=== PATIENT | female | born 1985 | race Caucasian/White ===

== ENCOUNTER 2020-07-03 09:54 | Emergency (ER) | payer BC ==
[~2020-07-03] VITALS: Ht 165.1 cm; Wt 113.5 kg
[~2020-07-03 09:54] MED LIST: HYDR-4383 PO
[2020-07-03 09:57] VITALS: BP 141/78
[2020-07-03] MEDS ORDERED: SULF1TAB49 PO (10:18)
[2020-07-03] MEDS ORDERED: CEPH-572 PO (10:18)
[2020-07-03] MEDS ORDERED: TETanus/Pertussis (Acell)/Diphther VAC/PF (Tdap-Adult) 0.5ml syringe IMVAC ONE (10:35)
== END 2020-07-03 10:40 | disposition home or self-care (01) ==
LOC: ER 09:56
DX: N61.0 Mastitis without abscess (principal); Z72.89 Other problems related to lifestyle; Z79.2 Long term (current) use of antibiotics
CPT/HCPCS: 90471; 90715; 99283

== ENCOUNTER 2020-07-18 10:36 | Emergency (ER) | payer BC ==
[~2020-07-18] VITALS: Ht 165.1 cm; Wt 115.0 kg
[2020-07-18 11:03] VITALS: BP 150/92
[2020-07-18] MEDS ORDERED: HYDROcodone/acetaminophen 5mg/325mg tablet PO ONE (11:50)
[2020-07-18 12:39] LABS: BASOPHILS # (AUTO) 0.1 X10'3 (0-0.2); BASOPHILS % (AUTO) 0.8 % (0-1); EOSINOPHILS % (AUTO) 0.4 % (0-6); HEMATOCRIT 35.2 % (35.0-45.0); HEMOGLOBIN 11.7 g/dl (12.0-16.0); LYMPHOCYTES # (AUTO) 1.5 X10'3 (1.1-4.8); LYMPHOCYTES % (AUTO) 19.5 % (21-51); MEAN CORPUSCULAR HEMOGLOBIN 28.6 PG (27.0-31.0); MEAN CORPUSCULAR HGB CONC 33.1 g/dL (33.0-36.5); MEAN CORPUSCULAR VOLUME 86.4 FL (78-98); MEAN PLATELET VOLUME 7.8 FL (7.4-10.4); MONOCYTES # (AUTO) 0.6 X10'3 (0-0.9); MONOCYTES % (AUTO) 7.1 % (2-12); NEUTROPHILS # (AUTO) 5.6 X10'3 (1.8-7.7); NEUTROPHILS % (AUTO) 72.2 % (42-75); PLATELET COUNT 304 X10'3 (140-440); RED BLOOD COUNT 4.08 X10'6 (4.20-5.60); RED CELL DISTRIBUTION WIDTH 14.6 % (11.5-14.5); WHITE BLOOD COUNT 7.7 X10'3 (4.5-11.0)
[2020-07-18 12:52] LABS: ALANINE AMINOTRANSFERASE 20 U/L (12-78); ALBUMIN 3.6 G/DL (3.4-5.0); ALBUMIN/GLOBULIN RATIO 0.9 (1.1-1.5); ALKALINE PHOSPHATASE 91 IU/L (46-116); ANION GAP 5 (8-16); ASPARTATE AMINO TRANSFERASE 12 U/L (10-37); BILIRUBIN,TOTAL 0.4 MG/DL (0.1-1.0); BLOOD UREA NITROGEN 19 MG/DL (7-18); BUN/CREATININE RATIO 21.3 (6.6-38.0); C-REACTIVE PROTEIN 0.09 MG/DL (0.0-0.5); CALCIUM 8.6 MG/DL (8.5-10.1); CHLORIDE 107 MMOL/L (99-107); CREATININE 0.89 MG/DL (0.40-0.90); GLUCOSE 78 MG/DL (70-104); POTASSIUM 4.3 MMOL/L (3.5-5.1); SODIUM 140 MMOL/L (135-145); TOTAL CARBON DIOXIDE 28.2 MMOL/L (24-32); TOTAL PROTEIN 7.5 G/DL (6.4-8.2); eGFR 73 ML/MIN
== END 2020-07-18 13:32 | disposition home or self-care (01) ==
LOC: ER 10:37
DX: S49.91XA Unspecified injury of right shoulder and upper arm, initial encounter (principal); M13.811 Other specified arthritis, right shoulder; Z79.899 Other long term (current) drug therapy; X58.XXXA Exposure to other specified factors, initial encounter; Y93.89 Activity, other specified; Y92.89 Other specified places as the place of occurrence of the external cause; Y99.8 Other external cause status
CPT/HCPCS: 36415; 73030; 80053; 85025; 85651; 86140; 99284

== ENCOUNTER 2023-04-18 14:10 | Emergency (ER) | payer SELFPAY ==
[~2023-04-18] VITALS: Ht 165.1 cm; Wt 120.0 kg
[2023-04-18 15:05] LABS: BASOPHILS % (AUTO) 0.2 % (0-1); EOSINOPHILS % (AUTO) 0.3 % (0-6); HEMOGLOBIN 12.4 g/dl (12.0-16.0); LYMPHOCYTES # (AUTO) 0.9 X10'3 (1.1-4.8); LYMPHOCYTES % (AUTO) 6.3 % (21-51); MEAN CORPUSCULAR HGB CONC 32.6 g/dL (33.0-36.5); MEAN CORPUSCULAR VOLUME 85.8 FL (78-98); MEAN PLATELET VOLUME 7.8 FL (7.4-10.4); MONOCYTES # (AUTO) 0.5 X10'3 (0-0.9); MONOCYTES % (AUTO) 3.7 % (2-12); NEUTROPHILS # (AUTO) 12.3 X10'3 (1.8-7.7); NEUTROPHILS % (AUTO) 89.5 % (42-75); PLATELET COUNT 324 X10'3 (140-440); RED BLOOD COUNT 4.43 X10'6 (4.20-5.60); WHITE BLOOD COUNT 13.8 X10'3 (4.5-11.0)
[2023-04-18 15:20] LABS: BILIRUBIN,URINE SMALL (Neg); CLARITY,URINE CLOUDY (Clear); COLOR,URINE YELLOW (Yellow); GLUCOSE, URINE 100 mg/dl (Neg); KETONES,URINE TRACE mg/dl (Neg); LEUKOCYTE ESTERASE ,URINE LARGE (Neg); NITRITES, URINE NEGATIVE (Neg); OCCULT BLOOD,URINE NEGATIVE (Neg); PH,URINE >=9.0 (4.8-8.0); PROTEIN,URINE 100 mg/dl (Neg)
[2023-04-18 15:21] LABS: URINE HCG NEGATIVE (NEG)
[2023-04-18 15:21] LABS: ALANINE AMINOTRANSFERASE 36 U/L (12-78); ALBUMIN 3.1 G/DL (3.4-5.0); ALBUMIN/GLOBULIN RATIO 0.7 (1.1-1.5); ALKALINE PHOSPHATASE 113 IU/L (46-116); ANION GAP 5 (8-16); ASPARTATE AMINO TRANSFERASE 24 U/L (10-37); BILIRUBIN,TOTAL 0.4 MG/DL (0.1-1.0); BLOOD UREA NITROGEN 11 MG/DL (7-18); CALCIUM 8.8 MG/DL (8.5-10.1); CHLORIDE 104 MMOL/L (99-107); CREATININE 0.92 MG/DL (0.40-0.90); GLUCOSE 106 MG/DL (70-104); POTASSIUM 3.7 MMOL/L (3.5-5.1); SODIUM 137 MMOL/L (135-145); TOTAL PROTEIN 7.8 G/DL (6.4-8.2); eCRCL 75 ML/MIN; eGFR 69 ML/MIN
[2023-04-18 15:23] LABS: LIPASE 20 U/L (16-77)
[2023-04-18 15:26] LABS: UA COLLECTION TYPE NON-SPECIFIED
[2023-04-18 15:31] LABS: WBC,URINE TNTC /HPF (0-4)
[2023-04-18 15:32] LABS: AMORPHOUS PHOSPHATES 2+; MUCUS STRANDS MANY /LPF (Neg)
[2023-04-18 15:34] LABS: WBC CLUMPS,URINE FEW /HPF (NEGATIVE)
[2023-04-18 15:35] LABS: BACTERIA,URINE 2+ /HPF (Neg); SQUAMOUS EPITHELIAL CELL,UR MANY /LPF (FEW)
--- NOTE | 2023-04-18 15:36 | NUR ---
URINE REJECTED FOR CULTURE
--- NOTE | 2023-04-18 18:54 | NUR ---
PATIENT PRESENTS TO REGISTRATION DESK TO INFORM STAFF SHE IS GOING HOME. PATIENT AMBULATORY OUT OF ED WITH STEADY GAIT. CHARGE NURSE NOTIFIED. VERBALIZED UNDERSTANDING. LWBS
[2023-04-18] MEDS ORDERED: normal saline 1000ml 1,000 ML IV ONE (19:30)
[2023-04-18] MEDS ORDERED: piperacillin/tazo 3.375gm/50ml 50 ML IV ONE (19:30)
[2023-04-18] MEDS ORDERED: morphine 4 MG/ML inj SYRINge IV ONE ×2 (19:30→20:50)
[2023-04-18] MEDS ORDERED: ondansetron/PF 4mg/2ml inj IV ONE (19:30)
[2023-04-18] MEDS ORDERED: AMOX-117 PO (21:08)
[2023-04-18] MEDS ORDERED: OXYC-145 PO (21:08)
[2023-04-18 22:03] VITALS: BP 123/71; PULSE 88; RESP 15; TEMP 98.5; O2SAT 95
== END 2023-04-18 22:08 | disposition home or self-care (01) ==
LOC: ER 14:11
DX: K57.92 Diverticulitis of intestine, part unspecified, without perforation or abscess without bleeding (principal)
CPT/HCPCS: 36415; 74176; 80053; 81001; 81025; 83690; 85025; 96365; 96375; 96376; 99285; J2270; J2405; J2543; J7030

== ENCOUNTER 2024-04-19 09:53 | Emergency (ER) | payer BC ==
[~2024-04-19] VITALS: Ht 165.1 cm; Wt 80.2 kg
[~2024-04-19 09:53] MED LIST changes: +OXYC-145 PO
[2024-04-19 09:57] VITALS: TEMP 97.1
[2024-04-19 11:11] LABS: BASOPHILS % (AUTO) 0.8 % (0-1); EOSINOPHILS # (AUTO) 0.1 X10'3 (0-0.9); EOSINOPHILS % (AUTO) 2.4 % (0-6); HEMATOCRIT 40.6 % (35.0-45.0); HEMOGLOBIN 13.2 g/dl (12.0-16.0); LYMPHOCYTES # (AUTO) 1.4 X10'3 (1.1-4.8); LYMPHOCYTES % (AUTO) 34.2 % (21-51); MEAN CORPUSCULAR HEMOGLOBIN 29.1 PG (27.0-31.0); MEAN CORPUSCULAR HGB CONC 32.6 g/dL (33.0-36.5); MEAN CORPUSCULAR VOLUME 89.5 FL (78-98); MEAN PLATELET VOLUME 8.1 FL (7.4-10.4); MONOCYTES # (AUTO) 0.3 X10'3 (0-0.9); MONOCYTES % (AUTO) 6.1 % (2-12); NEUTROPHILS # (AUTO) 2.4 X10'3 (1.8-7.7); NEUTROPHILS % (AUTO) 56.5 % (42-75); PLATELET COUNT 278 X10'3 (140-440); RED BLOOD COUNT 4.54 X10'6 (4.20-5.60); WHITE BLOOD COUNT 4.2 X10'3 (4.5-11.0)
[2024-04-19 11:28] LABS: ALANINE AMINOTRANSFERASE 16 U/L (12-78); ALBUMIN 3.2 G/DL (3.4-5.0); ALBUMIN/GLOBULIN RATIO 0.9 (1.1-1.5); ALKALINE PHOSPHATASE 88 IU/L (46-116); ANION GAP 3 (8-16); ASPARTATE AMINO TRANSFERASE 20 U/L (10-37); BILIRUBIN,TOTAL 0.3 MG/DL (0.1-1.0); BLOOD UREA NITROGEN 8 MG/DL (7-18); BUN/CREATININE RATIO 10.5 (10.0-20.0); CHLORIDE 100 MMOL/L (99-107); CREATININE 0.76 MG/DL (0.40-0.90); GLUCOSE 80 MG/DL (70-104); LIPASE 26 U/L (16-77); POTASSIUM 3.7 MMOL/L (3.5-5.1); SODIUM 133 MMOL/L (135-145); TOTAL CARBON DIOXIDE 29.7 MMOL/L (24-32); TOTAL PROTEIN 6.8 G/DL (6.4-8.2); eCRCL 90 ML/MIN; eGFR 85 ML/MIN
[2024-04-19 11:36] VITALS: BP 132/74; PULSE 68; RESP 16; O2SAT 98
== END 2024-04-19 11:50 | disposition home or self-care (01) ==
LOC: ER 09:54
DX: R10.32 Left lower quadrant pain (principal); K59.00 Constipation, unspecified; Z72.9 Problem related to lifestyle, unspecified
CPT/HCPCS: 36415; 80053; 83690; 85025; 99283; A6449